=== PATIENT | female | born 1965 | race Hispanic/Latino ===

== ENCOUNTER 2023-08-24 13:44 | Emergency (ER) | payer OTHER ==
[2023-08-24] MEDS ORDERED: NA CHLORIDE 0.9% 1,000 ML ONE (14:37)
--- NOTE | 2023-08-24 14:43 | RAD REPORT ---
EXAM DESCRIPTION: CT - Head Brain Wo Cont - 08/24/2023 2:35 pm CLINICAL HISTORY: VISUAL DISTURBANCES Headache, drowsiness COMPARISON: <Comparisons> TECHNIQUE: All CT scans are performed using dose optimization technique as appropriate and may inclu de automated exposure control or mA/KV adjustment according to patient size. FINDINGS: No intracranial hemorrhage, hydrocephalus or extra-axial fluid collection.No areas of brai n edema or evidence of midline shift. The paranasal sinuses and mastoids are clear. The calvarium is intact. IMPRESSION: No acute intracranial abnormality.
[2023-08-24 15:18] LABS: Absolute Basophils 0.1 K/uL (0-0.5); Absolute Lymphocytes (CBC) 0.9 K/uL (0.7-4.9); Absolute Monocytes 0.4 K/uL (0.1-1.3); Absolute Neutrophil 6.4 K/uL (1.8-8.0); Basophils % 0.8 % (0-1.3); Eosinophils % 0.5 % (0-4.4); Hematocrit 41.6 % (36.0-45.0); Hemoglobin 13.8 g/dL (12.0-15.0); Lymphocytes % 11.1 % (15.3-44.8); MCH 27.5 pg (27.0-35.0); MCHC 33.2 g/dL (32.0-36.0); MCV 82.8 fL (80-100); Monocytes % 5.1 % (3.3-12.3); Neutrophils % 82.5 % (41.7-73.7); Nucleated Red Blood Cells % 0.1 % (0-0); Platelets 142 thou/uL (152-406); RBC Red Blood Cell Count 5.02 M/uL (3.86-4.86); Red Cell Distribution Width 14.3 % (12.1-15.2)
[2023-08-24 15:26] LABS: PT Prothrombin Time 13.5 SECONDS (9.5-12.5); PTT, Activated Partial Thromb 38.7 SECONDS (24.3-36.9); Protime INR 1.23
[2023-08-24 15:40] LABS: Albumin 3.6 g/dL (3.4-5.0); Albumin/Globulin Ratio 0.9 (1.1-1.8); Anion Gap 11.9 mEq/L (5.0-15.0); Bilirubin Direct 0.6 mg/dL (0-0.2); Bilirubin Indirect, Calculated 0.9 mg/dL (0.2-0.8); Bilirubin Total 1.5 mg/dL (0.2-1.0); Globulin 4.2 g/dL (2.3-3.5); Magnesium 1.4 mg/dL (1.6-2.4); Potassium 3.9 mEq/L (3.5-5.1); Protein, Total 7.8 g/dL (6.4-8.2); Troponin High Sensitivity 4.7 pg/mL (<58.9)
[2023-08-24 15:47] LABS: Specific Gravity 1.027 (1.005-1.030); Urine Bacteria <20 /HPF (<20); Urine Bilirubin 1+ (Negative); Urine Blood Negative (Negative); Urine Clarity Extremely Turbid (Clear); Urine Color Dark-Yellow (Yellow); Urine Crystals Unidentified Few /HPF (None Seen); Urine Culture Reflex Order REFLEXED; Urine Glucose 3+ (Negative); Urine Ketones TRACE (Negative); Urine Microscopic Reflex YN ORDER UMIC; Urine Mucus 1+ /HPF (None Seen); Urine Nitrite NEGATIVE (Negative); Urine Protein 3+ (Negative); Urine Urobilinogen 2+ (Normal); Urine pH 5.5 (5.0-7.0)
[2023-08-24] MEDS ORDERED: MAGNESIUM SULFATE 1 gm IVPB 1 GM/100 ML BAG IV ONE (16:14)
--- NOTE | 2023-08-24 16:51 | RAD REPORT ---
EXAM DESCRIPTION: US - Abdomen Exam Limited - 08/24/2023 4:44 pm CLINICAL HISTORY: ABD PAIN COMPARISON: <Comparisons> FINDINGS: The gallbladder demonstrates no gallstones. No pericholecystic fluid or gallbladder wall t hickening. The common bile duct is normal measuring 2 mm. The liver demonstrates no findings of intrahepatic biliary dilatation. IMPRESSION: Unremarkable examination.
[2023-08-24] MEDS ORDERED: ACETAMINOPHEN 500 MG TAB ONE (17:32)
[2023-08-24 18:42] LABS: Monoscreen NEG (NEG)
--- NOTE | 2023-08-24 18:45 | EDPHYS ---
Physician Documentation [facility] Name: Shasta Middleton Age: 58 yrs Sex: Female : 1965 Arrival Date: 08/24/2023 Time: 13:44 Bed 14 Private MD: ED Physician Cruz Mackay HPI: 08/23 14:15 This 58 yrs old Female presents to ER via Unassigned with complaints of Pain kb All Over, Nausea, Dizziness. 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 Denies chest pain, shortness of breath. Dizziness worse with change of positions. Historical: - Allergies: 14:27 No Known Allergies; ll1 - PMHx: 14:27 Diabetes mellitus; Hypertensive disorder; ll1 14:27 Hypercholesterolemia; ll1 - PSHx: 14:27 section; R knee, L shoulder SX; ll1 - Immunization history:: Adult Immunizations up to date. - Infectious Disease History:: Denies. - Social history:: Smoking status: Patient denies any tobacco usage or history of. ROS: 14:57 Constitutional: As per HPI kb Exam: 14:57 Constitutional: This is a well developed, well nourished patient who is awake, alert, kb and in no acute distress. Head/Face: Normocephalic, atraumatic. Eyes: Pupils equal round and reactive to light, extra-ocular motions intact. Lids and lashes normal. Conjunctiva and sclera are non-icteric and not injected. Cornea within normal limits. Periorbital areas with no swelling, redness, or edema. ENT: Moist Mucous membranes Cardiovascular: Regular rate Respiratory: Respirations even and unlabored. No increased work of breathing. Talking in full sentences Abdomen/GI: Soft, non-tender. No distention Skin: Warm, dry with normal turgor. Normal color. MS/ Extremity: Pulses equal, no cyanosis. Neurovascular intact. Full, normal range of motion. Neuro: Awake and alert, GCS 15, oriented to person, place, time, and situation. Moves all extremities. Normal gait. 15:04 ECG was reviewed by the Attending Physician. kb Vital Signs: 14:28 BP 78 / 55; Pulse 95; Resp 16; Temp 97.8; Pulse Ox 98% on R/A; Weight 82.55 kg; Height ll1 4 ft. 6 in. ; Pain 7/10; 14:30 BP 92 / 55; Pain 7/10; ll1 15:21 BP 111 / 55; Pulse 90; Resp 18; Pulse Ox 99% on R/A; rs5 14:28 Body Mass Index 42.30 (82.55 kg, 139.7 cm) ll1 14:28 Pain Scale: Adult ll1 14:30 Pain Scale: Adult ll1 14:30 cuff size changed from Large to regular ll1 MDM: 13:51 Patient medically screened. kb 18:42 Differential diagnosis: cardiac arrhythmia, generalized weakness, hypovolemia, kb idiopathic dizziness, near-syncope, TIA. Data reviewed: vital signs, nurses notes. Consideration of Admission/Observation Escalation of care including admission/observation considered. admission considered for hypotension and dizziness, but pt states her symptoms have resolved and she prefers to go home. . Counseling: I had a detailed discussion with the patient and/or guardian regarding the historical points, exam findings, and any diagnostic results supporting the discharge/admit diagnosis, lab results, radiology results, the need for outpatient follow up, a family practitioner, to return to the emergency department if symptoms worsen or persist or if there are any questions or concerns that arise at home. Response to treatment: the patient's symptoms have resolved after treatment. 18:45 ED course: Pt educated to follow up with GI for abnormal liver enzymes. kb 08/23 14:11 Order name: Basic Metabolic Panel; Complete Time: 15:41 08/23 14:11 Order name: CBC with Diff; Complete Time: 15:33 08/23 14:11 Order name: Hepatic Function; Complete Time: 15:41 08/23 14:11 Order name: Magnesium; Complete Time: 15:41 08/23 14:11 Order name: Protime (+inr); Complete Time: 15:33 08/23 14:11 Order name: Ptt, Activated; Complete Time: 15:33 08/23 14:11 Order name: Troponin High Sensitivity; Complete Time: 15:41 08/23 14:11 Order name: Urinalysis w/ reflexes; Complete Time: 15:50 08/23 15:51 Order name: Urine Culture EDMS 08/23 17:29 Order name: [place] Screen Profile; Complete Time: 18:42 kb 08/23 14:11 Order name: CT Head Brain wo Cont; Complete Time: 14:43 as6 08/23 15:44 Order name: Abdomen Limited US; Complete Time: 17:03 kb 08/23 14:11 Order name: Cardiac monitoring; Complete Time: 15:08 as08/23 14:11 Order name: EKG - Nurse/Tech; Complete Time: 15:08 as08/23 14:11 Order name: IV Saline Lock; Complete Time: 15:21 as08/23 14:11 Order name: Labs collected and sent; Complete Time: 15:21 as08/23 14:11 Order name: NPO; Complete Time: 15:21 as08/23 14:11 Order name: O2 Per Protocol; Complete Time: 15:21 08/23 14:11 Order name: O2 Sat Monitoring; Complete Time: 15:21 08/23 14:11 Order name: Orthostatics; Complete Time: 15:21 as EC:04 Rate is 91 beats/min. Rhythm is regular. QRS Morris is Normal. ME interval is normal at kb 146 msec. QRS interval is normal at 82 msec. QT interval is normal at 435 msec. Administered Medications: 14:40 Drug: NS 0.9% IV 1000 ml IV at 1000 ml once Route: IV; Rate: 1000 ml; Site: left rs5 antecubital; 15:00 Follow up: Response: No adverse reaction rs5 15:50 Follow up: IV Status: Completed infusion rs5 15:55 Drug: Magnesium Sulfate IVPB 1 grams IVPB once over 1 hrs Route: IVPB; Infused Over: 1 rs5 hrs; Site: right wrist; 16:05 Follow up: Response: No adverse reaction rs5 17:32 Drug: Acetaminophen PO 1000 mg PO once Route: PO; rs5 17:44 Follow up: Response: No adverse reaction rs5 Disposition Summary: 08/24/23 18:44 Discharge Ordered Notes: Location: Home kb Condition: Stable kb Diagnosis - Dizziness and giddiness kb - Abnormal results of liver function studies kb Followup: kb - With: Emergency Department - When: As needed - Reason: Worsening of condition Followup: kb - With: Private Physician - When: 2 - 3 days - Reason: Recheck today's complaints, Continuance of care, Re-evaluation by your physician Discharge Instructions: - Discharge Summary Sheet kb - Dehydration, Adult, [id number] kb - Dizziness, Atts-pe-[id number] kb - Liver Function Tests kb Forms: - Medication Reconciliation Form kb - Thank You Letter kb - Antibiotic Education kb - Prescription Opioid Use kb - Patient Portal Instructions kb - Leadership Thank You Letter kb Signatures: Dispatcher [employer] EDMS Leydi Galicia FNP-C TOE PULLER-CkElsa Velasquez, RN RN ll1 Yovany Fitch, RN RN as6 Sarthak Carr, RN RN rs5 Corrections: (The following items were deleted from the chart) 14:12 14:12 Head Brain Wo Cont+CT.RAD.BRZ ordered. 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 Denies chest pain, shortness of breath. . kb 15:44 15:44 Abdomen Limited+US.RAD.BRZ ordered. EDMS EDMS
--- NOTE | 2023-08-24 18:45 | ER ---
Nurse's Notes [facility] Name: Shasta Middleton Age: 58 yrs Sex: Female : 1965 Arrival Date: 08/24/2023 Time: 13:44 Bed 14 Private MD: Diagnosis: Dizziness and giddiness;Abnormal results of liver function studies Presentation: 08/23 14:28 Chief complaint: Patient states: CRABTREE, sensitivity to light, dizzy, nausea, near syncope ll1 feeling started at noon today. Coronavirus screen: Vaccine status: Patient reports being unvaccinated. Client denies travel out of the [place] in the last 14 days. fatigue, headache, nausea, Client presents with at least one sign or symptom that may indicate coronavirus-19. Standard/surgical mask placed on the client. Ebola Screen: Patient denies travel to an Ebola-affected area in the 21 days before illness onset. Initial Sepsis Screen: Does the patient meet any 2 criteria? No. Patient's initial sepsis screen is negative. Does the patient have a suspected source of infection? No. Patient's initial sepsis screen is negative. Risk Assessment: Do you want to hurt yourself or someone else? Patient reports no desire to harm self or others. Onset of symptoms was August 24, 2023. 14:28 Method Of Arrival: Ambulatory ll1 14:28 Acuity: SHELDON 2 ll1 Historical: - Allergies: 14:27 No Known Allergies; ll1 - PMHx: 14:27 Diabetes mellitus; Hypertensive disorder; ll1 14:27 Hypercholesterolemia; ll1 - PSHx: 14:27 section; R knee, L shoulder SX; ll1 - Immunization history:: Adult Immunizations up to date. - Infectious Disease History:: Denies. - Social history:: Smoking status: Patient denies any tobacco usage or history of. Screenin:28 [facility] ED Fall Risk Assessment (Adult) History of falling in the last 3 months, rs5 including since admission No falls in past 3 months (0 pts) Confusion or Disorientation No (0 pts) Intoxicated or Sedated No (0 pts) Impaired Gait No (0 pts) Mobility Assist Device Used No (0 pt) Altered Elimination No (0 pt) Score/Fall Risk Level 0 - 2 = Low Risk Oriented to surroundings, Maintained a safe environment. 14:28 Abuse screen: Denies threats or abuse. rs5 14:28 Nutritional screening: No deficits noted. Tuberculosis screening: No symptoms or risk rs5 factors identified. Assessment: 14:28 Reassessment: Pt arrived in room. rs5 14:31 Reassessment: Provider notified of low BP. rs5 14:31 General: Appears in no apparent distress. uncomfortable, Behavior is calm, cooperative. rs5 Pain: Complains of pain in head Pain currently is 5 out of 10 on a pain scale. Quality of pain is described as aching, Is continuous. 14:31 Neuro: Level of Consciousness is awake, alert, obeys commands, Oriented to person, rs5 place, time, situation, Reports dizziness. Cardiovascular: Patient's skin is warm and dry. Rhythm is regular. Respiratory: Airway is patent Respiratory effort is even, unlabored, Respiratory pattern is regular, symmetrical. GI: Abdomen is round non-distended, Abd is soft and non tender X 4 quads. Reports nausea. : No signs and/or symptoms were reported regarding the genitourinary system. EENT: No signs and/or symptoms were reported regarding the EENT system. Derm: Skin is pink, warm \\T\\ dry. Musculoskeletal: Range of motion: intact in all extremities. 14:32 Reassessment: Pt states "I'm having a pain all over and I'm a little nauseous but i rs5 don't want any medications". 15:28 Reassessment: No changes from previously documented assessment. rs5 16:39 Reassessment: Patient and/or family updated on plan of care and expected duration. Pain rs5 level reassessed. Patient is alert, oriented x 3, equal unlabored respirations, skin warm/dry/pink. Patient states feeling better. 17:00 Reassessment: Provider notified pt is experiencing pain. rs5 17:00 Pain: Complains of pain in head Pain currently is 6 out of 10 on a pain scale. Quality rs5 of pain is described as aching, Is continuous. 18:49 Reassessment: Patient and/or family updated on plan of care and expected duration. Pain rs5 level reassessed. Patient is alert, oriented x 3, equal unlabored respirations, skin warm/dry/pink. Patient denies pain at this time. Patient states feeling better. Patient states symptoms have improved. Vital Signs: 14:28 BP 78 / 55; Pulse 95; Resp 16; Temp 97.8; Pulse Ox 98% on R/A; Weight 82.55 kg; Height ll1 4 ft. 6 in. ; Pain 7/10; 14:30 BP 92 / 55; Pain 7/10; ll1 15:21 BP 111 / 55; Pulse 90; Resp 18; Pulse Ox 99% on R/A; rs5 14:28 Body Mass Index 42.30 (82.55 kg, 139.7 cm) ll1 14:28 Pain Scale: Adult ll1 14:30 Pain Scale: Adult ll1 14:30 cuff size changed from Large to regular ll1 ED Course: 13:46 Patient arrived in ED. rg4 13:51 [facility] Gal[facility] kb 13:51 Cruz Mackay MD is Attending Physician. kb 14:26 Sarthak Carr, RN is Primary Nurse. rs5 14:28 Patient has correct armband on for positive identification. Placed in gown. Bed in low rs5 position. Call light in reach. Side rails up X2. 14:28 No provider procedures requiring assistance completed. rs5 14:30 Triage completed. ll1 14:30 Arm band placed on Patient placed in an exam room, on a stretcher. ll1 14:37 CT Head Brain wo Cont In Process Unspecified. EDMS 16:46 Abdomen Limited US In Process Unspecified. EDMS 19:00 IV discontinued, intact, bleeding controlled, No redness/swelling at site. Pressure rs5 dressing applied. Administered Medications: 14:40 Drug: NS 0.9% IV 1000 ml IV at 1000 ml once Route: IV; Rate: 1000 ml; Site: left rs5 antecubital; 15:00 Follow up: Response: No adverse reaction rs5 15:50 Follow up: IV Status: Completed infusion rs5 15:55 Drug: Magnesium Sulfate IVPB 1 grams IVPB once over 1 hrs Route: IVPB; Infused Over: 1 rs5 hrs; Site: right wrist; 16:05 Follow up: Response: No adverse reaction rs5 17:32 Drug: Acetaminophen PO 1000 mg PO once Route: PO; rs5 17:44 Follow up: Response: No adverse reaction rs5 Medication: 17:45 VIS not applicable for this client. rs5 Outcome: 18:44 Discharge ordered by MD. goff 19:00 Discharged to home ambulatory, rs5 19:00 Condition: stable 19:00 Discharge instructions given to patient, family, Instructed on discharge instructions, follow up and referral plans. Demonstrated understanding of instructions, follow-up care, 19:12 Patient left the ED. kd4 Signatures: Dispatcher [employer] EDMS Leydi Galicia, NURSE INTERN-C NURSE INTERN-Kimber Dc rg4 Elsa Ng RN RN ll1 Sarthak Carr RN RN rs5 Reggie Winchester RN RN kd4 Corrections: (The following items were deleted from the chart) 15:22 14:28 Reassessment: Provider notified of low BP. rs5 rs5
[2023-08-24 20:07] VITALS: BP 111/55; TEMP 97.8; O2SAT 99
--- NOTE | 2023-08-25 12:36 | EKG ---
Test Date: 2023-08-24 Test Time: 14:49:37 [employer]: JANELL MEASUREMENT RESULTS: Intervals: Rate: 91 WA: 146 QRSD: 82 QT: 354 QTc: 435 Viola: P: 76 WA: 146 QRS: 94 T: 57 INTERPRETIVE STATEMENTS: Normal sinus rhythm Normal ECG Compared to ECG 03/08/2008 16:46:24 No significant changes Electronically Signed On 08-25-23 12:33:24 CDT by Raman Bryant
== END 2023-08-24 19:12 | disposition home or self-care (01) ==
LOC: ER 13:44
DX: R42 Dizziness and giddiness (principal); R94.5 Abnormal results of liver function studies; E11.9 Type 2 diabetes mellitus without complications; I10 Essential (primary) hypertension
CPT/HCPCS: 87088; 85025; 81001; 87086; 80048; 36415; 83735; 86308; 85610; 80076; 85730; 84484; 70450; 76705; J3475; J7030; 93005